=== PATIENT | male | born 1960 | race Caucasian/White ===

== ENCOUNTER 2019-12-11 09:25 | Inpatient (IN) | payer SELFPAY ==
[2019-12-11] VITALS (7 sets, daily range): BP systolic 140–172; BP diastolic 85–100; PULSE 81–94; RESP 16–19; TEMP 37.1–37.3; O2SAT 96–98; BMI 26.3
--- NOTE | 2019-12-11 11:21 | PM.HP.1 ---
History of Present Illness History of Present Illness Date Patient Seen: 12/11/19 Time Patient Seen: 11:00 Chief complaint: direct admit Narrative: Patient is a 59-year-old male resident of [place] who presented to [facility] ER with complaints of severe pain and infection in his feet. He works outside in construction and yard work. Last summer he slid into revealing and injured his feet but did not seek medical attention. He states the tip of his right 3rd toe got black and fell off and healed on its own. Over the past winter he has had on and off pain and drainage in his feet for which he took OTC analgesics. Over the past week he got more concerned because of increasing pain and also noticed ulceration on the bottom of the left great toe. He denies fever or chills. On outside ER evaluation he was noted to have ulcerative lesion at plantar aspect of the left great toe with mild surrounding erythema. His CBC showed elevated WBC 19.2 with 70% neutrophils, hemoglobin 15.2, platelets 830. His sodium was 134, potassium 3.9, chloride 96, CO2 28, glucose 115, BUN 18 and creatinine 1.10. His fingerstick glucose was 136 and hemoglobin A1c was 5.9. His LFTs were slightly abnormal with ALT 67, AST 38, bilirubin 0.3, normal total protein and albumin. He had bilateral foot x-rays which per ER report did not show osteomyelitis. He had blood cultures drawn and was empirically started on Unasyn and vancomycin for treatment of foot cellulitis. His vitals were stable. The ER then requested transfer to [facility] for further management of patient's cellulitis and specialty consultation as needed. Patient has no history of diagnosed chronic medical conditions. He is an occasional smoker. He denies alcohol use. Meds Home Medications and Allergies Allergies Allergy/AdvReac Type Severity Reaction Status Date / Time No Known Drug Allergies Allergy Verified 12/11/19 11:36 Review of Systems Review of Systems ROS: Yes All systems reviewed with the patient and are negative except as otherwise documented Exam Narrative Exam Narrative: General: Alert and cooperative male in mild discomfort HEENT: Pupils equal and reactive Neck: No lymphadenopathy Lungs: Clear to auscultation Heart: Regular rhythm without murmur Abdomen: Soft, nontender without HSM Extremities: No edema, dorsalis pedis and posterior tibial pulses 2+ bilaterally, there is diffuse tenderness of the toes on both feet, there is purplish discoloration of the left great toe with an approximately 1 x 2 cm ulceration on the plantar surface of the toe cover with black eschar, there is general swelling of the left great toe which extends to the 1st metatarsal area which is also tender, there isn't obvious erythema although could be subtle, there is no drainage; there is distal amputation of the right middle toe, there is ulceration with dark scab on the distal right 2nd toe; there is intact light touch in the feet bilaterally Assessment & Plan Assessment & Plan narrative: 1. Left foot cellulitis, present on admission, active -this is associated with probably a chronic ulcer on the plantar surface of the great toe which became infected over the past week -outside labs elevated WBC 19.2 and platelets 830 likely reactive -outside x-rays of both feet have been submitted to [facility] for review -arterial circulation appears adequate with intact DP and PT pulses bilaterally -received vancomycin and Unasyn at outside ER -continue vancomycin and Unasyn -Percocet 5 mg q.4 hours as needed and Tylenol 650 mg q.6 as needed -repeat CBC in a.m. -wound care consult 2. Hyperglycemia, without diagnosis of diabetes, present on admission, active -outside lab serum glucose 115, CBG 136 reported fasting, however hemoglobin A1c is only 5.9 -trend glucose on labs 3. Elevated blood pressure, without diagnosis of hypertension, present on admission, active -admission BP 172/97 -track BP and start antihypertensive if indicated 4. Cigarette dependency, present on admission, active -he smokes occasionally, encouraged to quit smoking DVT prophylaxis: Lovenox
[2019-12-11] MEDS: OXYCODONE/ACETAMINOPHEN 5/325 TABLET 1 TAB PO ×3 (11:56→20:34)
[2019-12-11] MEDS: AMPICILLIN/SULBACTAM 3 GM 3 GM in SODIUM CHLORIDE 0.9% 100 ML IV ×3 (11:56→22:30)
[2019-12-11] MEDS: SODIUM CHLORIDE 0.9% FLUSH 10 ML IV ×2 (12:05→20:34)
[2019-12-11] MEDS: VANCOMYCIN 1,500 MG/300 ML FROZ.PIGGY 200 MG IV (13:50)
--- NOTE | 2019-12-11 20:41 | PC.NURSE ---
Antionette shift note: Patient awake and alert, resting quietly in room. Pain controlled with PO Percocet as ordered. Calls appropriately for staff assistance. Afebrile.
[2019-12-12] VITALS (10 sets, daily range): BP systolic 141–160; BP diastolic 79–97; PULSE 81–110; RESP 15–18; TEMP 36.6–37.6; O2SAT 97–100
[2019-12-12] MEDS: VANCOMYCIN 1,500 MG/300 ML FROZ.PIGGY 200 MG IV (01:20)
[2019-12-12] MEDS: OXYCODONE/ACETAMINOPHEN 5/325 TABLET 1 TAB PO ×5 (01:26→21:55)
[2019-12-12] MEDS: AMPICILLIN/SULBACTAM 3 GM 3 GM in SODIUM CHLORIDE 0.9% 100 ML IV ×2 (04:53→23:08)
[2019-12-12 05:52] LABS: Basophils Absolute Auto 100 /uL (0-100); Eosinophils Absolute Auto 300 /uL (0-450); Eosinophils Percent Auto 1.9 % (2-4); Hemoglobin 14.5 g/dL (13.5-17.5)
[2019-12-12 05:57] LABS: Add Manual Diff / Slide Review NO; Basophils Percent Auto 0.8 % (0-2); Hematocrit 43.6 % (41-53); Lymphocytes Absolute Auto 2600 /uL (1100-4500); Lymphocytes Percent Auto 15.8 % (25-40); Mean Corpuscular HGB Conc 33.3 % (30-36); Mean Corpuscular Hemoglobin 29.4 PG (26-34); Mean Corpuscular Volume 88.3 fL (80-100); Monocytes Absolute Auto 1200 /uL (0-900); Monocytes Percent Auto 7.7 % (3-14); Neutrophils Absolute Auto 12000 /uL (1500-7000); Neutrophils Percent Auto 73.8 % (50-75); Red Blood Cell Count 4.94 X10^6/uL (4.5-5.9); Red Cell Distribution Width 14.8 % (11.6-14.8); White Blood Cell Count 16.2 X10^3/uL (4.5-11.0)
[2019-12-12 06:01] LABS: BUN Creatinine Ratio 20.2 (6-22); Blood Urea Nitrogen 22 mg/dL (9-20); Calcium 9.3 mg/dL (8.4-10.2); Carbon Dioxide 33 mmol/L (22-32); Chloride 98 mmol/L (98-107); Estimated Glomerular Filt Rate > 60.0 mL/min (>60); Glucose 85 mg/dL (70-100); HEMOLYSIS < 15 (0-50); Potassium 4.7 mmol/L (3.4-5.1); Sodium 137 mmol/L (137-145)
[2019-12-12 06:05] LABS: Platelet Count 846 X10^3/uL (150-400)
[2019-12-12 06:16] LABS: RBC Morphology Normal Morphology
[2019-12-12 06:17] LABS: Platelet Estimate Increased on smear
--- NOTE | 2019-12-12 07:58 | PC.NURSE ---
Patient became very nauseated and wanted me to turn off the unasyn. Kept saying it was making him sick. Most of the unasyn was administered. Ran IVF to flush at [facility]. Reported this to day RN at bedside report.
--- NOTE | 2019-12-12 08:09 | PM.PN.1 ---
Subjective Subjective Date Patient Seen: 12/12/19 Interval history: Shoshana Devries is a 59-year-old male resident of [place] with no significant past medical history who presented to [facility] ED with complaints of severe pain and infection in his feet. The patient was a direct admission for higher level of care. The patient is resting in bed comfortably. He reports that his foot feels significantly improved in regard to pain since he was started on antibiotics. He has no other complaints and denies headache, shortness of breath, chest pain, abdominal pain, nausea, vomiting, fever, chills, dysuria, diarrhea or constipation. He is voiding and eliminating without difficulty. The patient reports he is eliminating without difficulty, however, no BM has been recorded since admission and a bowel regimen has been implemented. He is up ambulating independently. Exam Vital Signs (past 8 hours): - 12/12/19 04:10 Temperature 97.9 F Pulse Rate 97 H Respiratory Rate 16 Blood Pressure 160/93 H Pulse Oximetry 100 Oxygen Delivery Method Room Air Oxygen Flow Rate 0 Narrative Exam Narrative: General: Middle-aged gentleman sitting in bed and in no acute distress, well-developed, well-nourished, appropriately interactive. HEENT: Normocephalic, atraumatic. External ears without defect. Pupils equal, round, and reactive to light and accommodation. Anicteric sclerae, moist conjunctivae, and no lid lag. Neck: Supple with full range of motion. No lymphadenopathy or thyromegaly. Cardiovascular: Regular rate and rhythm without murmurs, rubs, or gallops appreciated Pulmonary: Clear to auscultation bilaterally without crackles, wheezes, or rhonchi. Normal respiratory effort with no use of accessory muscles. Abdomen: Soft, bowel sounds present, nontender, nondistended. No hepatosplenomegaly or masses appreciated. Extremities: No clubbing or edema. Bilateral distal toe discoloration and duskiness with tenderness to palpation. Distal pulses intact with good capillary refill. Left hallux with 1-2 cm ulceration on the plantar aspect and 1 cm ulceration on the tip of the 2nd toe. Neurological: Cranial nerves grossly intact. Psychiatric: Normal mood and affect. Alert and oriented to person, place, and time. Objective Labs Result Diagrams: 12/12/19 05:25 12/12/19 05:25 Labs: Laboratory Results - last 24 hr 12/12/19 12/12/19 05:25 05:25 WBC 16.2 H RBC 4.94 Hgb 14.5 Hct 43.6 MCV 88.3 MCH 29.4 MCHC 33.3 RDW 14.8 Plt Count 846 H Neut % (Auto) 73.8 Lymph % (Auto) 15.8 L [place] % (Auto) 7.7 Eos % (Auto) 1.9 L Baso % (Auto) 0.8 Neut # (Auto) 57641 H Lymph # (Auto) 2600 [place] # (Auto) 1200 H Eos # (Auto) 300 Baso # (Auto) 100 Platelet Estimate Increased on smear RBC Morphology Normal morphology Sodium 137 Potassium 4.7 Chloride 98 Carbon Dioxide 33 H BUN 22 H Creatinine 1.09 Estimated GFR > 60.0 BUN/Creatinine Ratio 20.2 Glucose 85 Calcium 9.3 Assessment & Plan Assessment & Plan narrative: Shoshana Devries is a 59-year-old male resident of [place] with no significant past medical history who presented to [facility] ED with complaints of severe pain and infection in his feet. The patient was a direct admission for higher level of care. 1. Acute left foot cellulitis, present on admission. Active. -Likely secondary to chronic ulcer on the plantar surface of the great toe which became infected over the past week. -Initial WBC 19.2, procalcitonin < 0.05 and platelet count of 830 (likely reactive and have started low-dose aspirin). Continue to monitor WBC, procalcitonin and platelet count daily. -Bilateral foot x-rays did not demonstrate any evidence of osteomyelitis. -Received vancomycin and Unasyn at outside ED. Continue vancomycin with dosing per pharmacist in Unasyn 3 g IV every 6 hours. -Continue supportive measures including elevation of lower extremity, pain control with acetaminophen 650 mg every 6 hours as needed for mild to moderate pain, and oxycodone 5 mg every 4 hours as needed for severe pain. -Consulted orthopedic surgery, Dr. Lockett, who plans to see patient later today. -Although arterial circulation appears intact with DP and PT distal pulses bilaterally concern for ischemic injury and ordered bilateral venous duplex ultrasound to rule out septic thrombophlebitis, pending. 2. Prediabetes, chronic, present on admission. Stable. -Hemoglobin A1c 5.9% indicative of prediabetes. -Continue trend glucose on labs and will initiate low-dose correctional scale insulin if patient is persistently hyperglycemic. -Continue heart healthy/carbohydrate consistent diet. 3. Elevated blood pressure, without diagnosis of hypertension, present on admission. Active. -Patient continues to be persistently hypertensive therefore started losartan 25 mg daily. 4. Tobacco dependency, chronic, present on admission. Stable. -Patient reports he smokes occasionally. -Discussed smoking cessation in detail and encourage patient to abstain indefinitely. Code status: Full code DVT prophylaxis: Enoxaparin Disposition: Patient likely to discharge in several days once lower extremity cellulitis is clinically improving. Quality VTE Deep Vein Thrombosis/Pulmonary Embolism Present on Admission: No
[2019-12-12 09:13] LABS: Procalcitonin < 0.05 ng/mL (<0.5)
[2019-12-12] MEDS: LOSARTAN 25 MG TABLET PO (10:17)
[2019-12-12] MEDS: ASPIRIN EC 81 MG TABLET PO (10:17)
[2019-12-12] MEDS: AMPICILLIN/SULBACTAM 3 GM 3 GM in SODIUM CHLORIDE 0.9% 100 ML 75 ML IV ×2 (11:41→17:46)
[2019-12-12] MEDS: VANCOMYCIN 1,500 MG/300 ML FROZ.PIGGY 125 MG IV (13:48)
--- NOTE | 2019-12-12 14:03 | PC.NURSE ---
Addendum entered by Melissa Newton R.N. 12/12/19 14:08: Patient tolerated Unasyn without nausea with infusion rate reduced. Original Note: Patient tolerating pain levels at 4-6/10 w/ Percocet q 4hr prn. Toes are dusky with eschar to 2cd toes bilaterally. L great toe has white/yellow callus and ulceration. All toes have erythema and dusky appearance. Dr. Lockett came in to see patient, and per patient no surgery indicated at this time. Called wound care center and spoke to Meg. She will notify Dr. Baldwin of consult.
--- NOTE | 2019-12-12 14:14 | CM.DANOTE ---
DCP Assessment: EMR reviewed: Patient is a 59 yr old female who was admitted for Lt Foot Cellulitis. Patient does not currently have a PCP or insurance. CM/RN met with patient at the bedside and explained role. patient was alert and orientedx3 during visit. Patient [place]. Patient lives alone but has a friend Suzanne who will be around to help patient with recovery at D/C. Patient is not interested in SNF or HH at this time but CM department will discuss this again after treatment plan is determined. Dr. Mendez placed a Consult in with wound care as well as Orthopedics to evaluate patient. I: Self Pay- CM/RN contacted admitting and asked them to talk with patient about doing a medicaid application since patient is unemployed and currently does not have any insurance. Plan: D/C home to Thursday with friend Suzanne to help at home. Patient [place] Patient states he will walk on or wheel chair on depending on D/C needs and ability and patients friend Suzanne will pick him up at the other side to bring him home. CM department will follow to make sure this D/C plan is safe once treatment plan in known. Teresa Crockett RN Discharge Planning/Care Management CM Discharge Assessment Start: 12/12/19 14:13 Freq: Status: Active Protocol: Document 12/12/19 14:13 (Rec: 12/12/19 14:14 [id number]) Discharge Planning Assessment Assigned Charging Car Operator Teresa Crockett RN Advance Directives? No History Provided By Patient,Medical Record Has Patient been admitted in last 30 No days? Prior Living Arrangements RV Household Members none Type of transporation used prior to Drives own vehicle admit Independent with ADL's Yes Is patient alert and oriented? Yes Discharge Plan Home Referrals Initiated None needed Whiteboard Updated in Patient Room with Yes name and ext. # of Charging Car Operator Review Status In Process Next Review Type Continued Stay Review
--- NOTE | 2019-12-12 15:01 | PM.CN ---
History of Present Illness Consult details Date Patient Seen: 12/12/19 Time Patient Seen: 15:01 Chief complaint: direct admit Reason for consult: B toe infections Requesting provider: Jeannette Mendez Narrative: 59-year-old male with bilateral toe infections. He has a history of scraping his right 3rd toe a year ago. Evidently this blistered and then the tip fell off and healed up uneventfully. Approximately 2 weeks ago he slid down an embankment and scraped up his feet. He started having some pain and swelling which has been escalating over the past week, with him finally coming into the emergency room yesterday. He lives in [place]. They evaluated him and started him on antibiotics and then transferred him here. He feels like the pain is getting better since he has been on antibiotics. He denies any recent fever or chills. He denies any drainage from the abrasions. Meds Home Medications and Allergies Home Medications Medication Instructions Recorded Confirmed Type No Known Home Medications 12/11/19 12/11/19 History Allergies Allergy/AdvReac Type Severity Reaction Status Date / Time No Known Drug Allergies Allergy Verified 12/11/19 11:36 Review of Systems Constitutional Constitutional: Denies chills, Denies fever(s) and Denies frequent falls ENT Ears, Nose, Mouth, and Throat: No dizziness Cardiovascular Cardiovascular: Denies chest pain Respiratory Respiratory: Denies chest congestion and Denies wheezing Gastrointestinal Gastrointestinal: Denies abdominal pain Genitourinary Genitourinary: Denies difficulty urinating Integumentary/Breasts Skin/Breast: Reports skin ulcer Neurologic Neurologic: Denies dizziness and Denies frequent falls Hematologic/Lymphatic Hematologic/Lymphatic: Denies easy bleeding Allergic/Immunologic Allergic/Immunologic: Denies wheezing Exam Vital Signs (past 8 hours): - 12/12/19 08:00 12/12/19 12:00 Temperature 99.7 F H 99.4 F Pulse Rate 88 110 H Respiratory Rate 15 16 Blood Pressure 159/89 H 141/79 H Pulse Oximetry 98 98 Oxygen Delivery Method Room Air Oxygen Flow Rate 0 Const Orientation: alert and oriented x3 Resp Auscultation: clear to auscultation bilaterally Cardio Rate: regular rate Rhythm: regular rhythm Extrem Other: Left foot duskiness in the great toe, 2nd toe and 3rd toe. Good capillary refill with good blanching. 1.5 cm dry ulceration on the plantar surface of the great toe. No ulcerations in the 2nd or 3rd toe. Tender to palpation through all 3 toes. Right foot duskiness in the great toe and 2nd toe. Good capillary refill and good blanching. 1 cm dry ulceration on the tip of the 2nd toe. Tender to palpation with both toes. 2+ dorsalis pedis pulse bilaterally. Objective Labs Result Diagrams: 12/12/19 05:25 12/12/19 05:25 Labs: Laboratory Results - last 24 hr 12/12/19 12/12/19 12/12/19 05:03 05:25 05:25 WBC 16.2 H RBC 4.94 Hgb 14.5 Hct 43.6 MCV 88.3 MCH 29.4 MCHC 33.3 RDW 14.8 Plt Count 846 H Neut % (Auto) 73.8 Lymph % (Auto) 15.8 L [place] % (Auto) 7.7 Eos % (Auto) 1.9 L Baso % (Auto) 0.8 Neut # (Auto) 86372 H Lymph # (Auto) 2600 [place] # (Auto) 1200 H Eos # (Auto) 300 Baso # (Auto) 100 Platelet Estimate Increased on smear RBC Morphology Normal morphology Sodium 137 Potassium 4.7 Chloride 98 Carbon Dioxide 33 H BUN 22 H Creatinine 1.09 Estimated GFR > 60.0 BUN/Creatinine Ratio 20.2 Glucose 85 Calcium 9.3 Procalcitonin < 0.05 Assessment & Plan Assessment & Plan narrative: Dry ulcerations of both feet with probable cellulitis. The patient does not have diabetes but is a smoker. This almost looks like a microvascular emboli, except for he has excellent capillary refill. This may be autoimmune like a Raynaud's or Buerger's disease causing the duskiness. He is feeling better with the IV antibiotics and I would continue these for now. With good blood flow this may just require wound care and antibiotics. I will check vascular studies on him. If this is autoimmune, it may be worth trying a calcium channel manfred. Check JOSE panel Stop smoking. Continue with observation antibiotics for now.
--- NOTE | 2019-12-12 15:16 | DI.US.S_ITS ---
PROCEDURE: US ARTERIAL DUPLEX LE BI INDICATIONS: B FOOT ULCERS TECHNIQUE: Color and pulse Doppler interrogation was performed of both lower extremity arterial systems, with image documentation. COMPARISON: None. FINDINGS: Right lower extremity: Common femoral artery: 145 cm/sec, with triphasic flow. Deep femoral artery: AP cm/sec, with monophasic flow. Proximal superficial femoral artery: 122 cm/sec, with triphasic flow. Mid superficial femoral artery: 111 cm/sec, with triphasic flow. Distal superficial femoral artery: 102 cm/sec, with triphasic flow. Popliteal artery: 129 cm/sec, with triphasic flow. Posterior tibial artery: 54 cm/sec, with monophasic flow. Anterior tibial artery/dorsalis pedis: 51 cm/sec, with monophasic flow. Colbert-scale imaging description: Scattered atherosclerotic plaque Left lower extremity: Common femoral artery: 163 cm/sec, with triphasic flow. Deep femoral artery: 146 cm/sec, with monophasic flow. Proximal superficial femoral artery: 139 cm/sec, with triphasic flow. Mid superficial femoral artery: 129 cm/sec, with triphasic flow. Distal superficial femoral artery: 117 cm/sec, with triphasic flow. Popliteal artery: 108 cm/sec, with triphasic flow. Posterior tibial artery: 45 cm/sec, with monophasic flow. Anterior tibial artery/dorsalis pedis: 39 cm/sec, with monophasic flow. Colbert-scale imaging description: Scattered atherosclerotic plaque IMPRESSION: No hemodynamically significant stenosis or occlusion identified in the right lower extremity or left lower extremity arterial vasculature. Dictated by: Cinda Mark MD, PhD on 12/12/2019 at 17:46 Approved by: Cinda Mark MD, PhD on 12/12/2019 at 17:49
[2019-12-12] MEDS: ACETAMINOPHEN 325 MG TABLET 650 MG PO (15:53)
[2019-12-12] MEDS: ENOXAPARIN 40 MG/0.4 ML SYRINGE SUBCUT (19:23)
[2019-12-12] MEDS: SODIUM CHLORIDE 0.9% FLUSH 10 ML IV (21:29)
--- NOTE | 2019-12-12 22:01 | PC.NURSE ---
A&OX3. pain controlled with percocet and tylenol. BLE elevated. strong pedal pulses. toes are dusky color. 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 independent in the room.
[2019-12-13 00:57] LABS: Vancomycin Trough 13.9 ug/mL (10-20)
[2019-12-13] MEDS: VANCOMYCIN 1,500 MG/300 ML FROZ.PIGGY 200 MG IV (01:06)
[2019-12-13] MEDS: OXYCODONE/ACETAMINOPHEN 5/325 TABLET 1 TAB PO ×2 (01:55→05:30)
[2019-12-13 05:21] VITALS: BP 152/70; PULSE 88; RESP 20; TEMP 37.2; O2SAT 93
[2019-12-13] MEDS: AMPICILLIN/SULBACTAM 3 GM 3 GM in SODIUM CHLORIDE 0.9% 100 ML IV (05:30)
[2019-12-13 05:58] LABS: Add Manual Diff / Slide Review NO; Basophils Absolute Auto 200 /uL (0-100); Basophils Percent Auto 1.2 % (0-2); Eosinophils Absolute Auto 300 /uL (0-450); Eosinophils Percent Auto 1.9 % (2-4); Hematocrit 45.9 % (41-53); Hemoglobin 15.3 g/dL (13.5-17.5); Lymphocytes Absolute Auto 2400 /uL (1100-4500); Lymphocytes Percent Auto 14.3 % (25-40); Mean Corpuscular HGB Conc 33.3 % (30-36); Mean Corpuscular Hemoglobin 29.4 PG (26-34); Mean Corpuscular Volume 88.2 fL (80-100); Monocytes Absolute Auto 1200 /uL (0-900); Monocytes Percent Auto 7.4 % (3-14); Neutrophils Absolute Auto 12400 /uL (1500-7000); Neutrophils Percent Auto 75.2 % (50-75); Platelet Count 880 X10^3/uL (150-400); Red Blood Cell Count 5.21 X10^6/uL (4.5-5.9); Red Cell Distribution Width 14.7 % (11.6-14.8); White Blood Cell Count 16.5 X10^3/uL (4.5-11.0)
[2019-12-13 06:12] LABS: BUN Creatinine Ratio 22.6 (6-22); Blood Urea Nitrogen 24 mg/dL (9-20); Calcium 9.4 mg/dL (8.4-10.2); Carbon Dioxide 30 mmol/L (22-32); Chloride 98 mmol/L (98-107); Estimated Glomerular Filt Rate > 60.0 mL/min (>60); Glucose 98 mg/dL (70-100); HEMOLYSIS < 15 (0-50); Magnesium 1.8 mg/dL (1.6-2.3); Potassium 4.9 mmol/L (3.4-5.1); Sodium 136 mmol/L (137-145)
[2019-12-13 06:34] LABS: Platelet Estimate Increased on smear; RBC Morphology Normal Morphology
[2019-12-13 06:35] LABS: Platelet Morphology Comment 1+ GIANT PLATLETS
[2019-12-13 07:42] VITALS: BP 150/80; PULSE 81; RESP 18; TEMP 37.1; O2SAT 97
[2019-12-13 07:50] VITALS: O2SAT 95
[2019-12-13] MEDS: ACETAMINOPHEN 325 MG TABLET 650 MG PO (07:58)
[2019-12-13] MEDS: LOSARTAN 25 MG TABLET PO (07:58)
[2019-12-13] MEDS: ASPIRIN EC 81 MG TABLET PO (07:58)
[2019-12-13] MEDS: ENOXAPARIN 40 MG/0.4 ML SYRINGE SUBCUT (07:58)
[2019-12-13] MEDS: SODIUM CHLORIDE 0.9% FLUSH 10 ML IV (07:59)
[2019-12-13] MEDS: OXYCODONE IR 5 MG TABLET PO (09:02)
[2019-12-13] MEDS: diphenhydrAMINE 25 MG TABLET PO (09:02)
[2019-12-13 09:11] LABS: Lactate (Lactic Acid) 0.6 mmol/L (0.7-2.1)
--- NOTE | 2019-12-13 09:22 | DI.CT.S_ITS ---
PROCEDURE: CT ANGIO ABD AORTA RUNOFF INDICATIONS: Poss b/l septic emboli vs ischemic infarction TECHNIQUE: After the administration of intravenous contrast, 2.5 mm sections acquired from T12 to the feet, with optional delayed image acquisition from the knees to the feet. 3-dimensional maximum intensity projection (MIP) coronal and sagittal reformats, and/or 3-dimensional volume rendering reformatting was then performed. For radiation dose reduction, the following was used: automated exposure control. COMPARISON: None. FINDINGS: Image quality: Excellent. Extravascular tissues: Liver is normal in size and enhancement. Gallbladder is unremarkable. Biliary system is non dilated. Pancreas enhances normally. Spleen is normal in size and enhancement. No adrenal nodules. Kidneys are normal in size and enhancement, without hydronephrosis. Non opacified bowel loops demonstrate normal wall thickness and enhancement. The appendix is thin walled. No free fluid or air. No retroperitoneal or mesenteric adenopathy. No ventral hernias. Bladder wall thickness is normal. No inguinal adenopathy. There is a large left inguinal hernia which contains mesenteric fat and a loop of the sigmoid colon. No findings to suggest strangulation or ischemia. No suspicious bony lesions. No vertebral body compression fractures. A probable bone island is present within the right iliac. Abdominal aorta: Mild atheromatous calcifications are present within the abdominal aorta. The renal arteries and LUCERO are patent. Right lower extremity: Mild atheromatous calcific lesions are present within the common iliac artery. The common iliac, external iliac, and internal iliac are widely patent. Mild stenosis is present at the common femoral artery. The right profunda and superficial femoral artery are patent. A moderate grade stenosis is present within the superior popliteal artery secondary to atheromatous plaque. The inferior popliteal artery is patent. The anterior and posterior tibial arteries are patent to the level of the foot. The peroneal artery is diminutive at the ankle. Left lower extremity: Mild atheromatous plaque is present within the common iliac. The left common iliac, internal iliac, and external iliac are patent. Moderate stenosis is present at the common femoral artery secondary to atheromatous plaque. The left profunda, superficial femoral artery, and popliteal artery are patent. The anterior posterior tibial arteries are patent to the level of the foot. The peroneal artery is diminutive near the ankle. IMPRESSION: 1. Moderate stenosis within the right popliteal artery. 2. Moderate stenosis within the left common femoral artery. 3. 2 vessel lower extremity runoff. 4. No findings to suggest occlusion or embolic event. Dictated by: Jyotsna Roberts M.D. on 12/13/2019 at 10:27 Approved by: Jyotsna Roberts M.D. on 12/13/2019 at 10:49
--- NOTE | 2019-12-13 09:30 | DI.ECHO.S_ITS ---
[facility] +---------+ : : [address] : : : : [place], [place] : : : : [id number] : : : : Phone: [phone]+ Echocardiogram Report + + :Name: NOEMY GOETZ Study Date: 12/13/2019 Height: 71 in : :[facility] Weight: 182 lb : : Gender: Male BSA: 2.0 m2 : :: 1960 Age: 59 yrs BP: 160/87 mmHg: :Reason For Study: Septic Emboli, Assess for Vegetations : :Ordering Physician: John : :Hospitalist Performed By: Leticia Marcus : :Referring: TYSON BALBUENA : + + Interpretation Summary The ejection fraction is estimated to be 60-65%. No significant valvular heart disease noted on the suboptimal study. If clinical suspicion is high recommend RACHAEL Procedure: A two-dimensional transthoracic echocardiogram with color flow and Doppler was performed. There is no prior echocardiogram noted for this patient. The study quality was technically adequate. The patient was in normal sinus rhythm during the exam. Left Ventricle: The left ventricle is normal in size. There is normal left ventricular wall thickness. The ejection fraction is estimated to be 60-65%. There are no obvious focal wall motion abnormalities noted but poor endocardial definition reduces the sensitivity for the detection of such. Diastolic parameters suggest probable normal left ventricular diastolic function and normal filling pressures. Right Ventricle: The right ventricle is normal in size and function. Atria: The left atrial size is normal. Right atrial size is normal. There is no Doppler evidence for an interatrial shunt. Mitral Valve: The mitral valve is normal in structure and function. There is no mitral regurgitation noted. Aortic Valve: The aortic valve is normal in structure and function. The aortic valve is trileaflet. The aortic valve opens well. There is no aortic valve stenosis. No aortic regurgitation is present. Tricuspid Valve: The tricuspid valve is normal in structure and function. There is trace tricuspid regurgitation. Pulmonary artery pressures cannot be estimated because of the lack of a measurable TR jet velocity but the IVC suggests a CVP of around 3 mmHg. Pulmonic Valve: The pulmonic valve is not well seen, but is grossly normal. There is trace pulmonic regurgitation. Great Vessels: The aortic root is normal size. The dimensions of the ascending aorta are normal. The IVC is of normal diameter and collapses greater than 50% with a sniff. This suggests a low right atrial pressure of 3 mm Hg. Pericardium/ Pleura There is no pericardial effusion. There is no pleural effusion. MMode/2D Measurements & Calculations LVIDd: 5.1 cm LVOT diam: 2.2 cm LVIDs: 3.6 cm Ao root diam: 3.1 cm FS: 29.5 % EPSS: 1.1 cm IVSd: 0.80 cm LVPWd: 1.1 cm LV graves. diameter/BSA (cm/m^2): 2.5 LV sys. diameter/BSA (cm/m^2): 1.8 LA A2 area: 20.5 cm2 RA long axis: 4.5 cm LA A4 area: 15.3 cm2 RA area: 14.7 cm2 LA length (vol): 4.7 cm RA vol: 40.7 ml LA vol: 56.4 ml RA : 20.1 ml/m2 LA vol index: 27.9 ml/m2 IVC diam: 1.5 cm RVD1 (basal): 3.2 cm TAPSE: 1.9 cm Doppler Measurements & Calculations Ao V2 max: 111.6 cm/sec LVOT Max Wiliam: 102.4 cm/sec Ao V2 mean: 75.2 cm/sec LV V1 max P.2 mmHg Ao max P.0 mmHg LV V1 VTI: 16.1 cm Ao mean P.5 mmHg MADAN(I,D): 3.2 cm2 Ao V2 VTI: 19.3 cm MADAN(V,D): 3.5 cm2 sev ratio: 0.84 MADAN indexed to BSA (cm^2/m^2): 1.6 MV E max wiliam: 51.3 cm/sec PA pr(Accel): 22.9 mmHg MV A max wiliam: 74.9 cm/sec PA Accel Time: 0.12 sec MV E/A: 0.69 Med Peak E' Wiliam: 4.6 cm/sec E/E' med: 11.1 Lat Peak E' Wiliam: 10.0 cm/sec E/E' lat: 5.1 E/e' average: 8.1 MV dec time: 0.24 sec MV P1/2t: 71.1 msec MV P1/2t max wiliam: 51.3 cm/sec SV(LVOT): 62.2 ml MVA(P1/2t): 3.1 cm2 Reading Physician:11:19 AM
--- NOTE | 2019-12-13 09:31 | P.PN_ITS ---
Subjective Subjective Date Patient Seen: 12/13/19 Time Patient Seen: 09:31 Interval history: He is having more pain in the toes but he is happy about the fact that it appears his toes are looking better. Exam Vital Signs (past 8 hours): - 12/13/19 05:21 12/13/19 07:42 12/13/19 07:50 Temperature 98.9 F 98.8 F Pulse Rate 88 81 Respiratory Rate 20 18 Blood Pressure 152/70 H 150/80 H Pulse Oximetry 93 97 95 Oxygen Delivery Method Room Air Oxygen Flow Rate 0 Const Orientation: alert and oriented x3 Extrem Other: Left foot -dusky over the great toe with good capillary refill. Delayed refill on the tip. Second toe only dusky from the DIP distally with 2-3 second capillary refill. Dried ulceration over the tip. Right foot -dusky over the great toe from the middle of the proximal phalanx and distally. Dry ulceration on the tip. 2-3 second capillary refill. Second and 3rd toes only dusky from the DIP joint distally with 2-3 seconds capillary refill. Good dorsalis pedis pulse Objective Imaging Bilateral leg arterial Doppler ultrasound: Radiologist's impression: No hemodynamically significant stenosis or occlusion identified in the right lower extremity or left lower extremity arterial vasculature. Labs Result Diagrams: 12/13/19 05:19 12/13/19 05:19 Labs: Laboratory Results - last 24 hr 12/13/19 12/13/19 12/13/19 00:21 05:19 05:19 WBC 16.5 H RBC 5.21 Hgb 15.3 Hct 45.9 MCV 88.2 MCH 29.4 MCHC 33.3 RDW 14.7 Plt Count 880 H Neut % (Auto) 75.2 H Lymph % (Auto) 14.3 L [place] % (Auto) 7.4 Eos % (Auto) 1.9 L Baso % (Auto) 1.2 Neut # (Auto) 09296 H Lymph # (Auto) 2400 [place] # (Auto) 1200 H Eos # (Auto) 300 Baso # (Auto) 200 H Platelet Estimate Increased on smear Plt Morphology Comment 1+ giant platlets RBC Morphology Normal morphology Sodium 136 L Potassium 4.9 Chloride 98 Carbon Dioxide 30 BUN 24 H Creatinine 1.06 Estimated GFR > 60.0 BUN/Creatinine Ratio 22.6 H Glucose 98 Lactate Calcium 9.4 Magnesium 1.8 Vancomycin Trough 13.9 12/13/19 08:46 WBC RBC Hgb Hct MCV MCH MCHC RDW Plt Count Neut % (Auto) Lymph % (Auto) [place] % (Auto) Eos % (Auto) Baso % (Auto) Neut # (Auto) Lymph # (Auto) [place] # (Auto) Eos # (Auto) Baso # (Auto) Platelet Estimate Plt Morphology Comment RBC Morphology Sodium Potassium Chloride Carbon Dioxide BUN Creatinine Estimated GFR BUN/Creatinine Ratio Glucose Lactate 0.6 L Calcium Magnesium Vancomycin Trough Assessment & Plan Assessment & Plan narrative: His arterial study show excellent blood flow down to the foot. His dusky coloration actually looks much better today on most of the toes. He just had a vascular runoff study to evaluate for microemboli. The results are not back yet. Again at this point I would just continue with IV antibiotic management for now and watch as this demarcates itself. Quality VTE Deep Vein Thrombosis/Pulmonary Embolism Present on Admission: No
[2019-12-13 09:32] LABS: Procalcitonin < 0.05 ng/mL (<0.5)
--- NOTE | 2019-12-13 11:44 | CM.DPNOTE ---
DCP/continued: Received notification from provider that patient medically cleared to d/c home today. Attempted to meet with patient to provide him with Medicaid application, but either in the bathroom or off floor. Therefore, placed in red folder to be provided to patient upon d/c. Dr. Mendez reports that patient has follow up appointments made for wound care and Francine Reyes. Patient planning to return to [facility] [place]. P: Home today. ZARINA Oconnor
--- NOTE | 2019-12-13 12:26 | P.DS_ITS ---
History of Present Illness History of Present Illness Date Patient Seen: 12/11/19 Chief complaint: direct admit Narrative: Written by Dr. Soriano: Patient is a 59-year-old male resident of [place] who presented to [facility] ER with complaints of severe pain and infection in his feet. He works outside in construction and yard work. Last summer he slid into revealing and injured his feet but did not seek medical attention. He states the tip of his right 3rd toe got black and fell off and healed on its own. Over the past winter he has had on and off pain and drainage in his feet for which he took OTC analgesics. Over the past week he got more concerned because of increasing pain and also noticed ulceration on the bottom of the left great toe. He denies fever or chills. On outside ER evaluation he was noted to have ulcerative lesion at plantar aspect of the left great toe with mild surrounding erythema. His CBC showed elevated WBC 19.2 with 70% neutrophils, hemoglobin 15.2, platelets 830. His sodium was 134, potassium 3.9, chloride 96, CO2 28, glucose 115, BUN 18 and creatinine 1.10. His fingerstick glucose was 136 and hemoglobin A1c was 5.9. His LFTs were slightly abnormal with ALT 67, AST 38, bilirubin 0.3, normal total protein and albumin. He had bilateral foot x-rays which per ER report did not show osteomyelitis. He had blood cultures drawn and was empirically started on Unasyn and vancomycin for treatment of foot cellulitis. His vitals were stable. The ER then requested transfer to [facility] for further management of patient's cellulitis and specialty consultation as needed. Patient has no history of diagnosed chronic medical conditions. He is an occasional smoker. He denies alcohol use. Discharge Providers Provider Date of admission: 12/11/19 09:25 Discharge Date: 12/13/19 Consults: 12/11/19 11:20 Consult to Wound Care Routine Comment: foot ulcer cellulitis Consulting Provider: [facility] 12/12/19 11:41 Consult to Orthopedic Surgery Routine Comment: Consulting Provider: Carlos Lockett Reason for consultation: foot cellulitis Has provider been notified: Yes Discharge provider: Jeannette Mendez DO Summary Hospital Course Discharge Diagnosis: 1. Bilateral atherosclerotic embolic microischemic foot injuries, present on admission. Improving. 2. Thrombocytosis, likely chronic, present on admission. Active. 3. Hyperlipidemia and atherosclerosis, chronic, present on admission. Active. 4. Prediabetes, chronic, present on admission. Stable. 5. Elevated blood pressure, without diagnosis of hypertension, present on admission. Active. 6. Tobacco dependence, chronic, present on admission. Stable. Hospital Course: Shoshana Devries is a 59-year-old male resident of [place] with no significant past medical history who presented to [facility] ED with complaints of severe pain and infection in his feet. The patient was a direct admission for higher level of care. 1. Bilateral atherosclerotic embolic microischemic foot injuries, present on admission. Improving. -Initial WBC 19.2, procalcitonin < 0.05 and platelet count of 830 at outside ED. Continued to monitor WBC which was persistently elevated and patient reports remote history of having chronically elevated WBC. -Bilateral foot x-rays did not demonstrate any evidence of osteomyelitis. -Received vancomycin and Unasyn at outside ED. Discontinued vancomycin and Unasyn as patient did not appear to have foot infection. -Continued supportive measures including elevation of lower extremity, pain control with acetaminophen 650 mg every 6 hours as needed for mild to moderate pain, and oxycodone 5 mg every 4 hours as needed for severe pain. -Consulted orthopedic surgery, Dr. Lockett, who did not recommend immediate surgical intervention and recommended workup of vascular and autoimmune etiologies. Do not feel this is customer development representative of Raynaud's disease or vasculitis. -Arterial duplex ultrasound demonstrated decreased circulation in bilateral distal lower extremities without hemodynamically significant stenosis or occlusion identified in the bilateral arterial vasculature. -CT angiogram of aorta with runoff demonstrated moderate stenosis within the right popliteal artery and moderate stenosis within the left common femoral artery. -Discussed case with general surgery, Dr. Mao, who also believes this is likely an ischemic insult to bilateral distal lower extremities and agrees with vascular surgery's recommendations. -Consulted [facility] over the phone, Dr. Errol Allen, who believes this was likely an atherosclerotic embolic shower based upon arterial duplex ultrasound and CT angiogram of aorta with runoff. He recommended aspirin 81 mg daily, clopidogrel 75 mg daily and atorvastatin 40 mg daily at bedtime with outpatient evaluation with vascular surgery in the next several weeks. Patient was provided clinic number and Dr. Allen' information. -Consulted Wound Care, Dr. Alcazar, who believes this is likely ischemic injury from athersclerotic versus thrombotic event and will plan to monitor patient's wounds outpatient. 2. Thrombocytosis, likely chronic, present on admission. Active. -Likely essential thrombocytosis versus other etiology such as polycythemia vera as hemoglobin normal. -Initial platelet count 846 and trended up to 880. Giant platelets seen on peripheral smear. -Started and continued aspirin 81 mg daily, clopidogrel 75 mg daily, and hydroxyurea 500 mg daily. -Discussed case with on-call gut snatcher, Dr. Edwards, who recommended treatment with hydroxyurea 500 mg daily and he will plan to arrange for outpatient evaluation in the next 1-2 weeks. 3. Hyperlipidemia and atherosclerosis, chronic, present on admission. Active. -Fasting lipid panel demonstrated fair lipid control: Total cholesterol 156, triglycerides 121, LDL 101, and HDL 31. -Started and continued atorvastatin 40 mg daily at bedtime. 4. Prediabetes, chronic, present on admission. Stable. -Hemoglobin A1c 5.9% indicative of prediabetes. -Blood glucose well controlled and did not need basal or correctional scale insulin. -Continued heart healthy/carbohydrate consistent diet. 5. Elevated blood pressure, without diagnosis of hypertension, present on admission. Active. -Patient continues to be persistently hypertensive, therefore, started and continued losartan 25 mg daily. Patient does not have a PCP and recommended patient establish care as soon as possible. Patient may need antihypertensive titrated up in future to better control BP. -Consulted [employer]INCIPAL [employer]INEER who provided resources to establish care with PCP and to acquire insurance coverage. 6. Tobacco dependence, chronic, present on admission. Stable. -Patient reports he currently smokes 3 cigarettes a day. He previously smoked 0.5 ppd x 45 years. -Discussed smoking cessation in detail and encouraged patient to abstain indefinitely. The patient reports he plans to stop from now on. Exam Vital Signs (past 8 hours): - 12/13/19 05:21 12/13/19 07:42 12/13/19 07:50 Temperature 98.9 F 98.8 F Pulse Rate 88 81 Respiratory Rate 20 18 Blood Pressure 152/70 H 150/80 H Pulse Oximetry 93 97 95 Oxygen Delivery Method Room Air Oxygen Flow Rate 0 Narrative Exam Narrative: General: Middle-aged gentleman sitting in bed and in no acute distress, well- developed, well-nourished, appropriately interactive. HEENT: Normocephalic, atraumatic. External ears without defect. Pupils equal, round, and reactive to light and accommodation. Anicteric sclerae, moist conjunctivae, and no lid lag. Neck: Supple with full range of motion. No lymphadenopathy or thyromegaly. Cardiovascular: Regular rate and rhythm without murmurs, rubs, or gallops appreciated Pulmonary: Clear to auscultation bilaterally without crackles, wheezes, or rhonchi. Normal respiratory effort with no use of accessory muscles. Abdomen: Soft, bowel sounds present, nontender, nondistended. No hepatosplenomegaly or masses appreciated. Extremities: No clubbing or edema. Bilateral distal toe discoloration and duskiness with tenderness to palpation that is improved R>L. Distal pulses intact with good capillary refill. Left hallux with 1-2 cm ulceration on the plantar aspect and right foot with 1 cm ulceration on the tip of the 2nd toe. Neurological: Cranial nerves grossly intact. Psychiatric: Normal mood and affect. Alert and oriented to person, place, and time. Objective Labs Result Diagrams: 12/13/19 05:19 12/13/19 05:19 Labs: Laboratory Results - last 24 hr 12/13/19 12/13/19 12/13/19 00:21 05:19 05:19 WBC 16.5 H RBC 5.21 Hgb 15.3 Hct 45.9 MCV 88.2 MCH 29.4 MCHC 33.3 RDW 14.7 Plt Count 880 H Neut % (Auto) 75.2 H Lymph % (Auto) 14.3 L [place] % (Auto) 7.4 Eos % (Auto) 1.9 L Baso % (Auto) 1.2 Neut # (Auto) 30450 H Lymph # (Auto) 2400 [place] # (Auto) 1200 H Eos # (Auto) 300 Baso # (Auto) 200 H Platelet Estimate Increased on smear Plt Morphology Comment 1+ giant platlets RBC Morphology Normal morphology Sodium 136 L Potassium 4.9 Chloride 98 Carbon Dioxide 30 BUN 24 H Creatinine 1.06 Estimated GFR > 60.0 BUN/Creatinine Ratio 22.6 H Glucose 98 Lactate Calcium 9.4 Magnesium 1.8 Procalcitonin Vancomycin Trough 13.9 12/13/19 12/13/19 08:46 08:46 WBC RBC Hgb Hct MCV MCH MCHC RDW Plt Count Neut % (Auto) Lymph % (Auto) [place] % (Auto) Eos % (Auto) Baso % (Auto) Neut # (Auto) Lymph # (Auto) [place] # (Auto) Eos # (Auto) Baso # (Auto) Platelet Estimate Plt Morphology Comment RBC Morphology Sodium Potassium Chloride Carbon Dioxide BUN Creatinine Estimated GFR BUN/Creatinine Ratio Glucose Lactate 0.6 L Calcium Magnesium Procalcitonin < 0.05 Vancomycin Trough Discharge Plan Discharge Plan Patient Disposition: Home Discharge comment: You are being discharged home. You have likely had a cholesterol shower to both of your lower extremities. Recommend you follow-up with [facility] surgery clinic with Dr. Allen and the phone number to make the appointment is [phone]. Please follow-up at the [facility] with Dr. Alcazar in 1 week. You have been prescribed aspirin 81 mg daily, clopidogrel 75 mg daily, atorvastatin 40 mg daily at bedtime, and hydroxyurea 500 mg daily. You have also been prescribed oxycodone Your high platelet count and white count also need to be evaluated by Hematology, Dr. Edwards, who will call you to arrange an appointment. If you have significant increase in pain, discoloration, or purulence drainage please be seen immediately. Please stop smoking indefinite ly. Discharge orders & Medications Prescriptions: New clopidogrel 75 mg Tablet 75 mg PO DAILY Qty: 30 RF: 0 aspirin 81 mg Tablet,Delayed Release (Dr/Ec) 81 mg PO DAILY Qty: 30 RF: 0 atorvastatin 40 mg tablet 40 mg PO BEDTIME Qty: 30 RF: 0 losartan 25 mg Tablet 25 mg PO DAILY Qty: 30 RF: 0 ibuprofen 600 mg Tablet 600 mg PO Q6HR PRN (Reason: Fever/Mild Pain (1-3)) Qty: 30 RF: 0 oxycodone-acetaminophen [Percocet] 5-325 mg tablet 1 tab PO Q4-6H PRN (Reason: pain) Qty: 20 RF: 0 hydroxyurea 500 mg capsule 500 mg PO DAILY Qty: 30 RF: 0 Follow up/Referrals: Errol Allen MD [Non-Staff] - Suraj Alcazar MD [Physician] - 12/19/19 2:00 pm (12/18 arrive @ 2pm for appointment with Dr. Alcazar @ wound care [place] [id number] [place] [address] [phone]) Maria Luisa Edwards MD [Physician] - Diet/Activity/Treatments Diet: Carb-consistent/Diabetic, Low-fat, Low-sodium and Low-cholesterol Activity: Activity as tolerated Visit Report/Discharge Packet Instructions: The Mediterranean Diet and Good Health, The DASH Diet, Serious Ways to Stop Smoking, Smoking Cessation for Older Adults: It's Not Too Late!, Tips to Help You Stop Smoking, Reasons to Quit Smoking, How to Quit Smoking Discharges patient from system. Discharge Date/Time: 12/13/19 13:30 Quality VTE Deep Vein Thrombosis/Pulmonary Embolism Present on Admission: No
[2019-12-13] MEDS: CLOPIDOGREL 75 MG TABLET PO (12:49)
--- NOTE | 2019-12-13 13:28 | PC.NURSE ---
Discharge Pt reports pain controlled after medications this AM. Up ambulating independently with no assistive device. D/c instructions provided to pt. Aware of f/u apts with various MDs. Pt states he will try and set up an apt with a PCP in [place] as well. Provided information about [facility] and pt was able to speak with someone from admitting on the phone about insurance. Rx were faxed to [facility] and pt notified of ambrocio costs of medications and stated it was ok for him to pay for those out of pocket. Pt left in w/c with [employer] escort to taxi to take [facility].
[2019-12-14 08:38] LABS: Cholesterol 156 mg/dL (140-199); HDL Cholesterol 31 mg/dL (40-60); LDL Cholesterol Calculated 101 mg/dL (<100); Triglycerides 121 mg/dL (35-150)
[2019-12-14 09:07] LABS: ANA Screen, IFA Negative (.)
== END 2019-12-13 13:30 | disposition home or self-care (01) | DRG 603 ==
PROVIDERS: Internal Medicine; Orthopaedic Surgery; Admitting Provider Family Medicine; Referring Provider Family Medicine; Visit Provider Family Medicine
DX: L03.116 Cellulitis of left lower limb (principal); I75.022 Atheroembolism of left lower extremity; L97.529 Non-pressure chronic ulcer of other part of left foot with unspecified severity; R03.0 Elevated blood-pressure reading, without diagnosis of hypertension; F17.210 Nicotine dependence, cigarettes, uncomplicated; R73.03 Prediabetes; D47.3 Essential (hemorrhagic) thrombocythemia; E78.5 Hyperlipidemia, unspecified
CPT/HCPCS: 36415; 75635; 80048; 80061; 80202; 83605; 83735; 84145; 85025; 86038; 93306; 93925; J0295; J1650; Q9967